=== PATIENT | male | born 1955 ===

== ENCOUNTER 2016-05-27 07:55 | Emergency (ER) | payer BC ==
[2016-05-27 08:14] VITALS: BP 127/79
--- NOTE | 2016-05-27 08:40 | UC ---
Respiratory Complaint HPI - History of Current Complaint Chief Complaint: UCGeneralIllness Stated Complaint: SORE THROAT,COUGH,CHEST CONGESTION Time Seen by Provider: 05/27/16 08:26 Hx Obtained From: Patient Onset/Duration: Sudden Onset Timing: Constant Severity Initially: Mild Severity Currently: Moderate Aggravating Factors: Nothing Alleviating Factors: Nothing Associated Signs And Symptoms: Positive: URI, Nasal Congestion, Sinus Discomfort - Risk Factors Pulmonary Embolism Risk Factors: Negative - Allergies/Home Medications Allergies/Adverse Reactions: Allergies Allergy/AdvReac Type Severity Reaction Status Date / Time Latex Allergy Rash Verified 05/27/16 08:02 Home Medications: Home Medications Aspirin EC Low Dose* [Ecotrin EC Low Dose 81 MG*] 81 mg PO DAILY 05/27/16 [ History Confirmed 05/27/16] PMH/Surg Hx/FS Hx/Imm Hx Previously Healthy: Yes Cardiovascular History Of: Reports: Hypertension Denies: Cardiac Disorders Respiratory History Of: Denies: COPD GI/ History Of: Denies: Gastroesophageal Reflux Neurological History Of: Denies: TIA - Surgical History Surgical History: Yes Surgery Procedure, Year, and Place: hernia surgery as a child, cysts removed from back of left ear, spine, & scrotum - Social History Occupation: Employed Full-time Lives: With Family Alcohol Use: Daily Alcohol Amount: 2 beers a night Substance Use Type: None Smoking Status (MU): Former Smoker Type: Cigarettes When Did the Patient Quit Smoking/Using Tobacco: 1991 Review of Systems Constitutional: Fatigue Skin: Negative Eyes: Negative ENT: Negative, Nasal Discharge Respiratory: Cough Cardiovascular: Negative Gastrointestinal: Negative Genitourinary: Negative Motor: Negative Neurovascular: Negative Musculoskeletal: Negative Neurological: Negative Psychological: Negative All Other Systems Reviewed And Are Negative: Yes Physical Exam Triage Information Reviewed: Yes Appearance: Well-Appearing, No Pain Distress, Well-Nourished Vital Signs: Initial Vital Signs Temp 98.0 F 05/27/16 08:03 Pulse 78 05/27/16 08:03 Resp 16 05/27/16 08:03 BP 127/79 05/27/16 08:03 Pulse Ox 97 05/27/16 08:03 Eye Exam: Normal ENT Exam: Normal ENT: Positive: Normal ENT inspection, Hearing grossly normal, Nasal congestion, Nasal drainage, TM dull. Negative: Pharyngeal erythema, Tonsillar swelling, Tonsillar exudate Dental Exam: Normal Neck exam: Normal Neck: Positive: 1 Respiratory Exam: Normal Cardiovascular Exam: Normal Abdominal Exam: Normal Musculoskeletal Exam: Normal Neurological Exam: Normal Psychological Exam: Normal Skin Exam: Normal UC Diagnostic Evaluation - Laboratory O2 Sat by Pulse Oximetry: 97 Respiratory Course/Dx - Course Course Of Treatment: Since his Sx persisted and worsened previously and he is concerned about this we will treat as viral and discussed the S/S to look for that could be a secondary bacterial infection and if those develop he may start antibiotics. He is agreeable to plan - Differential Dx/Diagnosis Differential Diagnosis/HQI/PQRI: Bronchitis, Lower Resp Infection, Sinusitis Provider Diagnoses: URI Discharge - Discharge Plan Condition: Good Disposition: HOME Prescriptions: Amoxicillin/Clavulanate TAB* [Augmentin TAB 875*] 875 mg PO BID #20 tab Patient Education Materials: Upper Respiratory Infection (ED) Referrals: Emiliano Yi MD [Primary Care Provider] - 3 Days Additional Instructions: WE DISCUSSED please start flonase and dayquill as we believe you have a viral URI and if your symptoms worsen , you develop a fever or feel the cough moved in you chest then you may start the antibiotics , If you do start them please be aware of the Side effects and start probiotics as well.
== END 2016-05-27 09:00 | disposition home or self-care (01) ==
LOC: UCCORT 07:55
DX: J06.9 Acute upper respiratory infection, unspecified (principal); Z87.891 Personal history of nicotine dependence
CPT/HCPCS: 99202; G0463